=== PATIENT | male | born 1965 | race Caucasian/White ===

== ENCOUNTER → 2018-01-13 | Outpatient (CLI) | payer OTHER ==
--- NOTE | ~2018-01-13 | EXE ---
[facility] [place] [address] STRESS ECHOCARDIOGRAM Name: JOI MURPHYWINSTONLENIN GUDELIANA Room #: REG [facility]#: [id number] Admission: 01/13/18 Attend Phys: David Garcia Discharge: Date of : 65 Date of Service: 01/13/18 1601 Report #: [id number] THIS REPORT FOR: //name// APPROVED REPORT Study performed: 01/13/2018 13:26:37 Exam: Stress Echocardiogram Indication: PVCs Patient Location: Out-Patient Stress Nurse: Katia Solorio RN Status: routine Ht: 5 ft 7 in HR: 75 bpm BP: 140/95 mmHg Rhythm: PVC's Medical History Allergies: No known drug allergies Procedure The patient underwent an Exercise Stress Test using the Duc Protocol. Blood pressure, heart rate, and EKG were monitored. An Echocardiogram was performed by sound effects technician in four stages in quad fashion. At peak stress, four selected images were obtained and placed side by side with resting images for comparison. Stress Test Details Stress Test: Exercise stress testing was performed using a Duc protocol. HR Resting HR: 75 bpm Max Heart Rate (APMHR): 168 bpm Max HR Achieved: 184 bpm Target HR (85% APMHR): 142 bpm % of APMHR: 109 Recovery HR: 108 bpm HR response to stress: Normal HR response to stress BP Resting BP: 140/95 mmHg Max BP: 207/97 mmHg Recovery BP: 164/89 mmHg ECG Resting ECG: Sinus Rhythm Stress ECG: Sinus Rhythm Arrhythmia: VPC's resolved with exercise [facility] [address] [place] [address] STRESS ECHOCARDIOGRAM Name: DYANA PACK Room #: REG [facility]#: [id number] Admission: 01/13/18 Attend Phys: David Garcia Discharge: Date of : 65 Date of Service: 01/13/18 1601 Report #: [id number] Recovery ECG: Sinus Rhythm Clinical Reason for Termination: Completed protocol/fatigue Stress Symptoms: NONE Exercise duration: 11 min 57 sec Highest Stage Achieved: Stage 4: 4.2 mph at 16% grade. Exercise capacity: 13.70 METs Stress ECG Conclusion 1. SUBJECTIVELY NEGATIVE FOR ISCHEMIA 2. ELECTROCARDIOGRAPHICALLY NEGATIVE FOR ISCHEMIA 3. SATISFACTORY FUNCTIONAL CAPACITY Pre-Stress Echo The resting Echocardiogram showed normal left ventricular contractility with an estimated Ejection Fraction of about 55-60%. Mild to moderate MR, Mild TR Post-Stress Echo The stress Echocardiogram showed normal left ventricular contractility with an estimated Ejection Fraction of about 65-70%. Normal augmentation of wall motion in all segments on post stress images. Conclusion Clinical Response: Non-ischemic Exercise Capacity: Superior Stress ECG Response: Non-ischemic Stress Echo Images: Non-ischemic 1. LOW RISK STUDY Other Information Study Quality: Adequate <Conclusion> 1. LOW RISK STUDY <ELECTRONICALLY SIGNED> By: David Smith MD 01/13/18 160 00 00 David Smith MD /INF
== END ==
LOC: CV 08:24
DX: I49.3 Ventricular premature depolarization (principal)